=== PATIENT | female | born 1940 | race Caucasian/White ===

== ENCOUNTER → 2016-11-19 | Outpatient (CLI) | payer OTHER ==
[~2016-11-19] MED LIST: ASPI-391 PO; CALCTAB65 PO; CYAN100T PO; EYED; IBUP-1050 PO; INSU1.2I; INSU100I SQ; INSU100I2 SC; LIDO16CR TOP; LOSA25TA18 PO; MULT-190 PO; OMEG-76 PO; PROBCAP PO; ZNTT/150 PO
[2016-11-19 13:46] LABS: ALB/GLOB RATIO 0.6 (0.9-2); ALKALINE PHOSPHATASE 104 U/L (45-117); ALT/SGPT 30 U/L (12-78); AST/SGOT 30 U/L (15-37); BLOOD UREA NITROGEN 13 mg/dl (7-18); BUN/CREATININE RATIO 13.6 (10-20); CALCIUM 8.9 mg/dl (8.5-10.1); CARBON DIOXIDE 30 mmol/L (21-32); CHLORIDE 102 mmol/L (98-107); CREATININE 0.92 mg/dl (0.60-1.20); GLUCOSE 196 mg/dl (70-99); HDL CHOLESTEROL 27 mg/dl; POTASSIUM 4.3 mmol/L (3.5-5.1); SODIUM 138 mmol/L (136-145)
[2016-11-19 13:58] LABS: CHOLESTEROL 163 mg/dl (0-200); LDL CHOLESTEROL CALCULATED 111 mg/dl; TRIGLYCERIDES 127 mg/dl (0-150); VERY LOW DENSITY LIPOPROT CALC 25 mg/dl
[2016-11-19 14:32] LABS: ESTIMATED AVERAGE GLUCOSE 166 mg/dl; HA1C FLAG Normal (Normal)
== END | disposition home or self-care (01) ==
LOC: C.LABPBG 10:04
PROVIDERS: ATTEND Family Medicine
DX: E11.9 Type 2 diabetes mellitus without complications (principal); E78.00 Pure hypercholesterolemia, unspecified; I10 Essential (primary) hypertension

== ENCOUNTER → 2016-11-25 | Outpatient (CLI) | payer OTHER ==
[2016-11-25 20:24] LABS: MANUAL MICROSCOPIC REQUIRED? NO; URINE APPEARANCE CLEAR (CLEAR); URINE BILIRUBIN NEG (NEG); URINE COLOR YELLOW; URINE NITRITE NEG (NEG); URINE PH 6.5 (4.5-7.5); UROBILINOGEN NEG (NEG)
[2016-11-25 20:30] LABS: REVIEW REQ? NO
== END | disposition home or self-care (01) ==
LOC: C.LABSPEC 17:30
PROVIDERS: ATTEND Family Medicine
DX: R39.9 Unspecified symptoms and signs involving the genitourinary system (principal); R10.9 Unspecified abdominal pain

== ENCOUNTER → 2016-11-30 | Outpatient (CLI) | payer OTHER ==
[~2016-11-30] MED LIST changes: +OPTIRAY 320 IV PRN
--- NOTE | 2016-11-30 11:11 | DIAGNOSTIC IMAGING REPORT ---
CT OF THE ABDOMEN AND PELVIS WITH CONTRAST CLINICAL HISTORY: Flank pain. Abdominal pain. Back pain. COMPARISON STUDY: MRCP September 13, 2012 TECHNIQUE: Following IV administration of 92 mL of Optiray-320, axial images of the abdomen and pelvis were obtained from the lung bases to the proximal femurs. Images were reviewed in the axial, sagittal, and coronal planes. IV contrast was administered without complication. CT DOSE: 581.89 mGy.cm FINDINGS: Minimal tree-in-bud nodules are noted within the right lower lobe shown on axial image 17 of 466. This is of doubtful significance. No pneumatosis, free air or portal venous gas is present. There is no biliary ductal dilatation status post cholecystectomy. No pancreatic ductal dilatation is present. The spleen and adrenal glands as well as the kidneys are unremarkable with the exception of a few subcentimeter hypodense renal lesions. These are too small to characterize but likely reflect cysts. There is extensive sigmoid diverticulosis. There may be minimal adjacent infiltration and fluid adjacent to the proximal sigmoid colon/distal descending colon. There is no definite evidence for acute diverticulitis. There is no evidence for a bowel obstruction. The appendix is normal. Mild levoscoliosis of the lumbar spine is noted. Moderate multilevel degenerative disc disease is noted. Slight loss of height of the superior endplate of L5 is likely old. IMPRESSION: 1. Extensive sigmoid diverticulosis. Minimal infiltration and trace fluid adjacent to the distal descending and proximal sigmoid colon. This may reflect mild acute diverticulitis. No free air or abscess. 2. No hydronephrosis. Electronically signed by: Sudheer Aranda M.D. 11/30/2016 11:10 AM Dictated Date/Time: 11/30/2016 10:59 AM
== END | disposition home or self-care (01) ==
LOC: C.CTS 09:54
PROVIDERS: ATTEND Family Medicine
DX: R10.9 Unspecified abdominal pain (principal)

== ENCOUNTER → 2017-06-07 | Outpatient (CLI) | payer OTHER ==
[~2017-06-07] MED LIST changes: -CALCTAB65 PO; -CYAN100T PO; -INSU1.2I; -LIDO16CR TOP; -MULT-190 PO; -OMEG-76 PO; -OPTIRAY 320 IV PRN
[2017-06-07 12:19] LABS: ALB/GLOB RATIO 0.9 (0.9-2); ALT/SGPT 56 U/L (12-78); AST/SGOT 38 U/L (15-37); BLOOD UREA NITROGEN 15 mg/dl (7-18); BUN/CREATININE RATIO 17.2 (10-20); CALCIUM 9.2 mg/dl (8.5-10.1); CARBON DIOXIDE 24 mmol/L (21-32); CHLORIDE 105 mmol/L (98-107); CHOLESTEROL 211 mg/dl (0-200); CREATININE 0.87 mg/dl (0.60-1.20); GLUCOSE 231 mg/dl (70-99); POTASSIUM 4.3 mmol/L (3.5-5.1); SODIUM 138 mmol/L (136-145); TRIGLYCERIDES 149 mg/dl (0-150); VERY LOW DENSITY LIPOPROT CALC 30 mg/dl
[2017-06-07 12:29] LABS: ALKALINE PHOSPHATASE 89 U/L (45-117); HDL CHOLESTEROL 42 mg/dl; LDL CHOLESTEROL CALCULATED 139 mg/dl
[2017-06-07 17:22] LABS: RATIO 11.5 mcg/mg (0-30.0)
== END | disposition home or self-care (01) ==
LOC: C.LABPBG 10:09
PROVIDERS: ATTEND Family Medicine
DX: E11.9 Type 2 diabetes mellitus without complications (principal)

== ENCOUNTER → 2017-12-08 | Outpatient (CLI) | payer OTHER ==
[~2017-12-08] MED LIST changes: +RANI150T85 PO; -ZNTT/150 PO
[2017-12-08 14:03] LABS: HEMOGLOBIN A1C 8.9 % (4.5-5.6)
[2017-12-08 17:07] LABS: ALBUMIN 3.6 gm/dl (3.4-5.0); ALKALINE PHOSPHATASE 97 U/L (45-117); ALT/SGPT 47 U/L (12-78); AST/SGOT 38 U/L (15-37); BLOOD UREA NITROGEN 13 mg/dl (7-18); CALCIUM 9.4 mg/dl (8.5-10.1); CARBON DIOXIDE 27 mmol/L (21-32); CHOLESTEROL 209 mg/dl (0-200); GLUCOSE 224 mg/dl (70-99); LDL CHOLESTEROL CALCULATED 141 mg/dl; POTASSIUM 4.4 mmol/L (3.5-5.1); SODIUM 136 mmol/L (136-145); TOTAL PROTEIN 7.9 gm/dl (6.4-8.2)
== END | disposition home or self-care (01) ==
LOC: C.LABPBG 11:06
PROVIDERS: ATTEND Nurse Practitioner Family
DX: E11.9 Type 2 diabetes mellitus without complications (principal); E78.00 Pure hypercholesterolemia, unspecified